=== PATIENT | female | born 1960 | race Caucasian/White ===

== ENCOUNTER 2024-12-20 12:05 | Emergency (ER) | payer MEDICARE, OTHER, SELFPAY ==
[2024-12-20] VITALS (23 sets, daily range): BP systolic 145–161; BP diastolic 73–122; PULSE 53–71; RESP 14–28; TEMP 36.5; O2SAT 95–100; BMI 51.2
--- NOTE | 2024-12-20 12:07 | ECG_ITS ---
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 Measurements Intervals [place] Rate: 69 P: 23 CA: 140 QRS: 19 QRSD: 94 T: 41 QT: 386 QTc: 415 Interpretive Statements SINUS RHYTHM MINIMAL ST DEPRESSION [0.025+ mV ST DEPRESSION] No previous ECG available for comparison Electronically Signed On 12-21-2024 08:58:58 CDT by Marco A Iyer M.D. [email or web address]
--- NOTE | 2024-12-20 12:07 | XRR_ITS ---
PROCEDURE INFORMATION: Exam: XR Chest Exam date and time: 12/20/2024 12:51 PM Age: 64 years old Clinical indication: Chest pressure; Chest pain TECHNIQUE: Imaging protocol: Radiologic exam of the chest. Views: 1 view. COMPARISON: No relevant prior studies available. FINDINGS: Lungs: Pulmonary vascularity is within normal limits. No consolidation. There is a 1.7 cm nodular density lateral to the right hilum that may be an enlarged lymph node, vessel on end or pulmonary nodule. Pleural spaces: Unremarkable. No pleural effusion. No pneumothorax. Heart/Mediastinum: There is cardiomegaly. Bones/joints: No acute abnormality. XR/XR chest 1V portable [id number] IMPRESSION: 1. No active pulmonary disease. 2. 1.7 cm nodular density lateral to the right hilum. Chest CT is recommended for further evaluation.
[2024-12-20 12:35] LABS: Basophils % 0.7 %; Eosinophils # 0.2 10^3/uL (0.0-0.8); Eosinophils % 4.4 %; Hematocrit 44.1 % (36-47); Lymphocytes # 1.1 10^3/uL (0.8-4.8); Lymphocytes % 25.2 %; Mean Corpuscular HGB Conc 31.5 g/dL (30-55); Mean Corpuscular Hemoglobin 27.7 pg (27-33); Mean Corpuscular Volume 87.8 fl (85-98); Mean Platelet Volume 10.7 fL (7.4-10.4); Monocytes # 0.5 10^3/uL (0.2-0.9); Monocytes % 10.6 %; Neutrophils # 2.67 10^3/uL (1.8-7.7); Neutrophils % 58.9 %; Nucleated Red Blood Cells % 0 %; Platelet Count 171 10^3/cmm (157-399); Red Blood Count 5.02 10^6/uL (3.85-5.65); Red Cell Distribution Width 13.2 % (12.1-15.1); White Blood Count 4.53 10^3/uL (3.29-11.43)
[2024-12-20 12:54] LABS: Troponin(5th) Baseline < 6 ng/L (0-10)
[2024-12-20 13:00] LABS: Alanine Aminotransferase 17 U/L (0-33); Albumin Level 4.1 g/dL (3.5-5.2); Alkaline Phosphatase 58 U/L (35-105); Anion Gap 13.9 (5-19); Aspartate Amino Transferase 21 U/L (0-32); Blood Urea Nitrogen 14 mg/dL (8-23); Calcium 8.6 mg/dL (8.5-10.5); Carbon Dioxide 27 mmol/L (22-29); Chloride 105 mmol/L (98-107); Creatinine Clr Calc Pharmacy 92.8306; Globulin 2.2 g/dL (1.3-4.6); Glucose 115 mg/dL (65-115); Lipase 32 U/L (13-60); Osmolality Calculated 295 mOsm/kg (285-295); Potassium 3.9 mmol/L (3.5-5.1); Sodium 142 mmol/L (136-145); Total Bilirubin 0.5 mg/dL (0.15-1.2); Total Protein 6.3 g/dL (6.6-8.7)
[2024-12-20 13:33] LABS: Thyroid Stimulating Hormone 0.12 uIU/mL (0.27-4.20)
--- NOTE | 2024-12-20 14:04 | W.ED.ARRPALP ---
HPI - Arrhythmia/Palpitations General: Chief Complaint: Arrhythmia/Palpitations Stated Complaint: irregular heartrate,heavy breathing,dizzy,tingling Time Seen by Provider: 12/20/24 13:47 History of Present Illness: 64-year-old female presents with feelings of having some palpitations. Patient reports that it started yesterday. She has a history of palpitations and has had some issues with her thyroid when this happened. She reports she is to feel a bit better with that now. She also feels like the skin on her face is very tight. Patient reports that it improved slightly after she took her metoprolol which she takes for palpitations. She reports that an thyroid medication are her only meds. Associated symptoms: Deny nausea or vomiting Related Data Home Medications ?Medication ?Instructions ?Recorded ?Confirmed albuterol sulfate 90 mcg/actuation 2 puff inhalation QID PRN 12/20/24 12/20/24 aerosol inhaler Shortness Of Breath fluticasone 250 mcg-salmeterol 50 1 inh inhalation BID 12/20/24 12/20/24 mcg/dose blistr powdr for inhalation (Advair Diskus) hydroxychloroquine 200 mg tablet See Rx Instructions .Route .COMPLEX 12/20/24 12/20/24 levothyroxine 200 mcg tablet 200 mcg PO DAILY 12/20/24 12/20/24 metoprolol succinate 25 mg 12.5 mg PO DAILY 12/20/24 12/20/24 tablet,extended release 24 hr torsemide 20 mg tablet 20 mg PO DAILY PRN Edema 12/20/24 12/20/24 Allergies Allergy/AdvReac Type Severity Reaction Status Date / Time ampicillin (From Unasyn) Allergy ALGY-Hives Verified 12/20/24 12:45 sulbactam (From Unasyn) Allergy ALGY-Hives Verified 12/20/24 12:45 Review of Systems Const: Denies: fever(s) or chills Card: Reports: palpitations; Denies: chest pain Resp: Denies: dyspnea or productive cough GI: Denies: abdominal pain, nausea or vomiting Skin/Breast: Denies: rash Physical Exam Const: COMMON NORMALS: no acute distress and patient oriented x3 NUTRITIONAL APPEARANCE: obese Resp: COMMON NORMALS: normal respiratory effort and clear to auscultation bilaterally AUSCULTATION: clear to auscultation bilaterally Cardio: COMMON NORMALS: regular rate and regular rhythm RATE: regular rate RHYTHM: regular rhythm GI: COMMON NORMALS: Soft to palpation and non-tender PALPATION: Yes Soft to palpation Extremity: COMMON NORMALS: normal to inspection and full ROM Neuro: COMMON NORMALS: patient oriented x3, moves all extremities and no focal motor deficits Psych: COMMON NORMALS: mental status grossly normal, cooperative, normal affect and speech normal SPEECH: Yes normal speech Skin: COMMON NORMALS: no rashes or lesions noted GENERAL SKIN EXAM: no rashes or lesions noted Course Vital Signs: Vital signs: Vital Signs Temperature 97.7 F 12/20/24 12:27 Pulse Rate 61 12/20/24 15:10 Respiratory Rate 24 H 12/20/24 15:10 Blood Pressure 150/74 12/20/24 15:10 Pulse Oximetry 97 12/20/24 15:05 Oxygen Delivery Me thod Room Air 12/20/24 14:35 MDM - Arrhythmia/Palpitations Medical Decision Making Patient's diagnostics were reviewed and shows no acute findings on labs. Her TSH is consistent with being on levothyroxine. She did have a 1.7 cm nodule on chest x-ray that we discussed. She will follow-up with her primary care provider to have that further evaluated. Patient was stable and discharged home. Lab Data 12/20/24 12:30 12/20/24 12:30 Radiology Impressions Chest X-Ray 12/20/24 12:07 IMPRESSION: 1. No active pulmonary disease. 2. 1.7 cm nodular density lateral to the right hilum. Chest CT is recommended for further evaluation. Laboratory Results WBC 4.53 10^3/uL (3.29-11.43) 12/20/24 12:30 RBC 5.02 10^6/uL (3.85-5.65) 12/20/24 12:30 Hgb 13.90 g/dL (11.27-16.99) 12/20/24 12:30 Hct 44.1 % (36-47) 12/20/24 12:30 MCV 87.8 fl (85-98) 12/20/24 12:30 MCH 27.7 pg (27-33) 12/20/24 12:30 MCHC 31.5 g/dL (30-55) 12/20/24 12:30 RDW 13.2 % (12.1-15.1) 12/20/24 12:30 Plt Count 171 10^3/cmm (157-399) 12/20/24 12:30 MPV 10.7 fL (7.4-10.4) H 12/20/24 12:30 Neut % (Auto) 58.9 % 12/20/24 12:30 Lymph % (Auto) 25.2 % 12/20/24 12:30 [place] % (Auto) 10.6 % 12/20/24 12:30 Eos % (Auto) 4.4 % 12/20/24 12:30 Baso % (Auto) 0.7 % 12/20/24 12:30 Neut # (Auto) 2.67 10^3/uL (1.8-7.7) 12/20/24 12:30 Lymph # (Auto) 1.1 10^3/uL (0.8-4.8) 12/20/24 12:30 [place] # (Auto) 0.5 10^3/uL (0.2-0.9) 12/20/24 12:30 Eos # (Auto) 0.2 10^3/uL (0.0-0.8) 12/20/24 12:30 Baso # (Auto) 0.0 10^3/uL (0.0-0.1) 12/20/24 12:30 Nucleated RBC % (auto) 0 % 12/20/24 12:30 Nucleated RBCs # 0.0 /100WBC 12/20/24 12:30 Sodium 142 mmol/L (136-145) 12/20/24 12:30 Potassium 3.9 mmol/L (3.5-5.1) 12/20/24 12:30 Chloride 105 mmol/L (98-107) 12/20/24 12:30 Carbon Dioxide 27 mmol/L (22-29) 12/20/24 12:30 Anion Gap 13.9 (5-19) 12/20/24 12:30 BUN 14 mg/dL (8-23) 12/20/24 12:30 Creatinine 0.8 mg/dL (0.5-0.9) 12/20/24 12:30 GFR Calculation 72.0 mL/min (90-130) L 12/20/24 12:30 Glucose 115 mg/dL (65-115) 12/20/24 12:30 Calculated Osmolality 295 mOsm/kg (285-295) 12/20/24 12:30 Calcium 8.6 mg/dL (8.5-10.5) 12/20/24 12:30 Total Bilirubin 0.5 mg/dL (0.15-1.2) 12/20/24 12:30 AST 21 U/L (0-32) 12/20/24 12:30 ALT 17 U/L (0-33) 12/20/24 12:30 Alkaline Phosphatase 58 U/L (35-105) 12/20/24 12:30 Troponin T Baseline < 6 ng/L (0-10) 12/20/24 12:30 Troponin T 120 Minute < 6.0 ng/L (0-10) 12/20/24 14:32 Delta Troponin T 0 ABS# (0-10) 12/20/24 14:32 Total Protein 6.3 g/dL (6.6-8.7) L 12/20/24 12:30 Albumin 4.1 g/dL (3.5-5.2) 12/20/24 12:30 Globulin 2.2 g/dL (1.3-4.6) 12/20/24 12:30 Lipase 32 U/L (13-60) 12/20/24 12:30 TSH 0.12 uIU/mL (0.27-4.20) L 12/20/24 12:30 All radiology interpretation(s) finalized by discharge Discharge Plan Discharge Patient Disposition: Home Clinical Impression: Palpitations, Abnormal finding on lung imaging Condition: Stable Prescriptions: No Action levothyroxine 200 mcg tablet 200 mcg PO DAILY fluticasone propion-salmeterol [Advair Diskus] 250-50 mcg/dose Blister With Device 1 inh INHALATION BID torsemide 20 mg Tablet 20 mg PO DAILY PRN (Reason: Edema) metoprolol succinate 25 mg Tablet Extended Release 24 Hr 12.5 mg PO DAILY hydroxychloroquine 200 mg Tablet See Rx Instructions .ROUTE .COMPLEX Rx Instructions: Take 1 tablet by mouth in the morning and 2 tablets in the evening. albuterol sulfate 90 mcg/actuation Hfa Aerosol Inhaler 2 puff INHALATION QID PRN (Reason: Shortness Of Breath) Discharge Orders: Discharge ED (Routine); Ordered 12/20/24 Ordered By: Baltazar Hinton Discharge Diet: Usual diet Discharge Activity: Resume usual activity Patient Instructions: Heart Palpitations (ED), Opioid Safety, Pain Management Activity Restrictions/Additional Instructions: I did put in a referral for endocrinology and they will be contacting you. Please follow-up with your primary care provider and review chest x-ray and consider an outpatient CT for further evaluation. Return to the ER as needed. Print Language: Telugu Coding Level of Care Code ED Kickboxing Instructor for Jerzy Hitchcock
--- NOTE | 2024-12-20 14:27 | PC.PHAR ---
Pt has relocated from [place] and filled all her medications prior to moving. Unable to verify medications with her pharmacy since it is Saturday. Last medication filled was Levothyroxine 200mcg daily filled at [facility] recently. Added medications from verbal orders taken directly from patient. She was unsure of strength of Advair, so I picked the most prescribed strength.
[2024-12-20 14:54] LABS: Troponin 5 2HR < 6.0 ng/L (0-10); Troponin 5 2HR Delta 0 ABS# (0-10)
--- NOTE | 2024-12-21 08:21 | DCPLANNER ---
messaged endo for er f/u
== END 2024-12-20 16:03 | disposition home or self-care (01) ==
PROVIDERS: Emergency Medicine; Emergency Provider Student in an Organized Health Care Education/Training Program
DX: R00.2 Palpitations (principal); R91.8 Other nonspecific abnormal finding of lung field; Z79.890 Hormone replacement therapy; Z79.899 Other long term (current) drug therapy
CPT/HCPCS: 36415; 71045; 80053; 83690; 84443; 84484; 85025; 93005; 99285

== ENCOUNTER 2025-01-08 10:25 | Outpatient (CLI) | payer MEDICARE, OTHER, SELFPAY ==
--- NOTE | 2025-01-08 10:31 | CT_ITS ---
WS: [id number] LDCT LUNG CANCER SCREENING HISTORY: HX OF TOBACCO USE TECHNIQUE: Axial imaging performed from the apices to 1 cm below the costophrenic angles. Coronal and sagittal reformats are submitted with axial MIP series. All CT scans at [facility] use at least one of these dose optimization techniques: automated exposure control; mA and/or kV adjustment per patient size (includes targeted exams where dose is matched to clinical indication); or iterative reconstruction. DLP: 244.22 mGy.cm DIvol: Mean CTDIvol: 7.10 (mGy) COMPARISON: None available. Diagnostic quality: Satisfactory Lungs: Pulmonary hyperexpansion from emphysema. Several small peripheral pulmonary nodules are less than 5 mm predominantly in the RIGHT lower lobe. Similar nodule in the medial LEFT upper lobe. Focal area of groundglass attenuation RIGHT upper lobe. No endobronchial lesions. Heart: Normal size heart with no pericardial effusion.. Other findings: Pulmonary artery enlargement. No mediastinal or hilar adenopathy. Moderate size hiatal hernia. No adrenal mass. Moderate thoracic spondylosis. CT/CT lung screening [id number] IMPRESSION: LUNG-RADS: 2-Benign Appearance or Behavior FOLLOW UP: 12 Month: Continue annual screening with LDCT OTHER FINDINGS (S MODIFIER): None.
--- NOTE | 2025-01-08 10:31 | USCV_ITS ---
Wandy Reece Age: 64 Gender: F : 1960 Exam Date: 01/08/2025 11:26 Ordering Phys: Merary Diop OFFICE ASSISTANT RECEPTIONIST Technologist: ELIZABETH Exam Location: [facility]_ Indication: dizziness Risk Factors: Previous Vascular Surgery: Right Brachial BP: / Left Brachial BP: / Right Left Velocity (cm/s) Spectral Plaque Velocity (cm/s) Spectral Plaque Syst/Diast Broadening Syst/Diast Broadening 83.60/ 12.10 Prox CCA 67.00 / 15.60 96.20/ 20.70 Mid CCA 58.20 / 18.40 59.50/ 16.40 Distal CCA 50.10 / 15.20 60.20/ 21.30 Prox ICA 32.20 / 9.50 71.20/ 23.80 Mid ICA 45.90 / 14.80 69.00/ 18.20 Distal ICA 55.00 / 17.10 39.50 ECA 62.70 1.00 ICA/CCA 0.60 Antegrade Vertebral Antegrade 33.20/ 10.60 cm/s 29.20/ 9.50 cm/s Tri Subclavian Tri 78.80 76.60 FINDINGS Comparison: none available. No significant elevation of systolic or diastolic velocities. Waveforms are normal. Minimal bilateral, intimal thickening with no elevation of velocity. CONCLUSIONS Bilateral ICA stenosis less than 50%. Mild carotid atherosclerosis. Dr. Rebeca Rose DO (Electronically Signed) Final Date: 08 January 2025 12:38 S
== END 2025-01-08 10:26 | disposition home or self-care (01) ==
LOC: RAD 10:26
PROVIDERS: PCP Nurse Practitioner Family; Visit Provider Nurse Practitioner Family
DX: Z12.2 Encounter for screening for malignant neoplasm of respiratory organs (principal); Z87.891 Personal history of nicotine dependence; K44.9 Diaphragmatic hernia without obstruction or gangrene; M47.814 Spondylosis without myelopathy or radiculopathy, thoracic region; J43.9 Emphysema, unspecified; J98.4 Other disorders of lung; R91.1 Solitary pulmonary nodule; R91.8 Other nonspecific abnormal finding of lung field
CPT/HCPCS: 71271; 93880

== ENCOUNTER → 2025-01-26 08:34 | Outpatient (BNVA) | payer MEDICARE, OTHER, SELFPAY | PROVIDERS: Visit Provider Internal Medicine | DX: E03.9 Hypothyroidism, unspecified (principal); C73 Malignant neoplasm of thyroid gland; I10 Essential (primary) hypertension; R79.89 Other specified abnormal findings of blood chemistry | CPT/HCPCS: 36415; 84432; 84439; 84443; 86800; 99204 ==

== ENCOUNTER 2025-03-24 07:52 | Outpatient (CLI) | payer MEDICARE, OTHER, SELFPAY ==
--- NOTE | 2025-03-24 08:00 | USR_ITS ---
PROCEDURE INFORMATION: Exam: US Soft Tissue Head and Neck, Thyroid Exam date and time: 03/24/2025 8:46 AM Age: 64 years old Clinical indication: Neck pain TECHNIQUE: Imaging protocol: Real-time ultrasound scan of the neck with image documentation. Exam focused on the thyroid. COMPARISON: CT lung screening [id number] 01/08/2025 10:39 AM FINDINGS: Right thyroid lobe: The thyroid gland has been resected. Left thyroid lobe: No nodules. Isthmus: No nodules. Lymph nodes: Several lymph nodes are noted in the right neck with the largest measuring 1.1 cm in diameter. Soft tissues: No soft tissue mass or fluid collection noted. US/US thyroid [id number] IMPRESSION: 1. Status post thyroidectomy. No suspicious mass noted. 2. Reactive adenopathy on the right
[2025-03-24 08:48] LABS: Free T4 Free Thyroxine 1.42 ng/dL (0.82-1.77); Thyroid Stimulating Hormone 0.68 uIU/mL (0.27-4.20)
== END 2025-03-24 07:53 | disposition home or self-care (01) ==
PROVIDERS: Visit Provider Internal Medicine
DX: C73 Malignant neoplasm of thyroid gland (principal); I10 Essential (primary) hypertension; E03.9 Hypothyroidism, unspecified; R79.89 Other specified abnormal findings of blood chemistry
CPT/HCPCS: 36415; 76536; 84439; 84443

== ENCOUNTER → 2025-03-30 08:51 | Outpatient (BNVA) | payer MEDICARE, OTHER, SELFPAY | PROVIDERS: Visit Provider Internal Medicine | DX: R79.89 Other specified abnormal findings of blood chemistry (principal); E03.9 Hypothyroidism, unspecified; I10 Essential (primary) hypertension; C73 Malignant neoplasm of thyroid gland | CPT/HCPCS: 99214 ==